=== PATIENT | female | born 1980 | race Caucasian/White ===

== ENCOUNTER 2017-12-23 11:26 | Emergency (ER) | payer OTHER ==
[~2017-12-23] VITALS: Ht 160 cm; Wt 56.7 kg
== END 2017-12-23 16:00 | disposition home or self-care (01) ==
LOC: ER 11:26
DX: B34.9 Viral infection, unspecified (principal)

== ENCOUNTER 2018-08-12 08:02 | Emergency (ER) | payer OTHER ==
[~2018-08-12] VITALS: Ht 160 cm; Wt 56.7 kg
== END 2018-08-12 10:15 | disposition home or self-care (01) ==
LOC: ER 08:02
DX: R30.0 Dysuria (principal); R31.0 Gross hematuria